=== PATIENT | female | born 1935 | race Caucasian/White ===

== ENCOUNTER 2017-05-26 23:07 | Emergency (ER) | payer MEDICARE, OTHER ==
[~2017-05-26] VITALS: Ht 172.7 cm; Wt 93.0 kg
[~2017-05-26 23:07] MED LIST: ASPI-1053 PO; CARB15DR3 EACHEYE; CARV-50 PO; CITA20TA11 PO; HYDR-569 PO; PANT-47 PO; PROP10DR4 OP; RESTASIS EACHEYE; SIMV20TA5 PO
[2017-05-26] MEDS ORDERED: ipratropium/albuterol 3ml nebule NEB ONE (23:15)
[2017-05-26 23:32] LABS: BASOPHILS % (AUTO) 0.6 % (0-1); EOSINOPHILS # (AUTO) 0.2 X10'3 (0-0.9); EOSINOPHILS % (AUTO) 3.1 % (0-6); HEMATOCRIT 42.7 % (35.0-45.0); HEMOGLOBIN 14.9 g/dl (12.0-16.0); LYMPHOCYTES # (AUTO) 2.1 X10'3 (1.1-4.8); LYMPHOCYTES % (AUTO) 31.7 % (21-51); MEAN CORPUSCULAR HEMOGLOBIN 32.1 PG (27.0-31.0); MEAN CORPUSCULAR HGB CONC 34.9 % (33.0-36.5); MEAN CORPUSCULAR VOLUME 92.1 FL (78-98); MEAN PLATELET VOLUME 8.7 FL (7.4-10.4); MONOCYTES # (AUTO) 0.7 X10'3 (0-0.9); MONOCYTES % (AUTO) 10.5 % (2-12); NEUTROPHILS # (AUTO) 3.5 X10'3 (1.8-7.7); NEUTROPHILS % (AUTO) 54.1 % (42-75); PLATELET COUNT 166 X10'3 (140-440); RED BLOOD COUNT 4.63 X10'6 (4.20-5.60); RED CELL DISTRIBUTION WIDTH 12.1 % (11.5-14.5); WHITE BLOOD COUNT 6.6 X10'3 (4.5-11.0)
[2017-05-26 23:53] LABS: ALANINE AMINOTRANSFERASE 27 U/L (12-78); ALBUMIN 3.8 G/DL (3.4-5.0); ALBUMIN/GLOBULIN RATIO 1.2 (1.1-1.5); ALKALINE PHOSPHATASE 75 IU/L (46-116); ANION GAP 11 (8-16); ASPARTATE AMINO TRANSFERASE 21 U/L (10-37); BILIRUBIN,TOTAL 0.5 MG/DL (0.1-1.0); BLOOD UREA NITROGEN 23 MG/DL (7-18); CALCIUM 9.3 MG/DL (8.5-10.1); CHLORIDE 108 MMOL/L (99-107); CREATININE 0.96 MG/DL (0.40-0.90); GLUCOSE 122 MG/DL (70-104); POTASSIUM 4.6 MMOL/L (3.5-5.1); SODIUM 144 MMOL/L (135-145); TOTAL CARBON DIOXIDE 25.2 MMOL/L (24-32); TOTAL PROTEIN 7.1 G/DL (6.4-8.2); eGFR 56 ML/MIN
[2017-05-27] MEDS ORDERED: LORazepam 2 mg/ml vial IV ONE (00:05)
[2017-05-27 00:46] LABS: PARTIAL THROMBOPLASTIN TIME 25 SECONDS (22-32); PROTHROMBIN TIME 10.6 SECONDS (9.0-12.0)
[2017-05-27] MEDS ORDERED: iohexol 350MG/ML 100ml bottle IV ONE (01:09)
[2017-05-27 02:58] VITALS: BP 161/91
== END 2017-05-27 04:01 | disposition home or self-care (01) ==
LOC: ER 23:07
DX: R06.02 Shortness of breath (principal); R22.1 Localized swelling, mass and lump, neck; I10 Essential (primary) hypertension; K21.9 Gastro-esophageal reflux disease without esophagitis; E78.00 Pure hypercholesterolemia, unspecified; Z90.49 Acquired absence of other specified parts of digestive tract; Z79.82 Long term (current) use of aspirin; Z79.899 Other long term (current) drug therapy; Z60.2 Problems related to living alone
CPT/HCPCS: 36415; 70490; 71045; 71275; 80053; 83880; 84484; 85025; 85379; 85610; 85730; 93005; 94640; 94760; 96374; 99285; J2060; Q9967

== ENCOUNTER 2017-11-29 12:07 | Day surgery (SDC) | payer MEDICARE ==
[~2017-11-29] VITALS: Ht 172.7 cm; Wt 90.9 kg
[2017-11-29] VITALS (11 sets, daily range): BP systolic 75–155; BP diastolic 41–87
[~2017-11-29 12:07] MED LIST changes: +CITA-278 PO; -CITA20TA11 PO; +HYDR-4383 PO; -HYDR-569 PO
[2017-11-29] MEDS ORDERED: MIDAZolam 5mg/5ml vial ONE (12:15)
[2017-11-29] MEDS ORDERED: fentaNYL/PF 50MCG/1 ML 2ML syringe ONE (12:15)
[2017-11-29] MEDS ORDERED: LIDOcaine Viscous 15ml cup ONE (12:15)
== END 2017-11-29 14:15 | disposition home or self-care (01) ==
LOC: GI LAB 12:07
PROVIDERS: ATTEND Internal Medicine Gastroenterology
DX: K44.9 Diaphragmatic hernia without obstruction or gangrene (principal); K21.9 Gastro-esophageal reflux disease without esophagitis; I10 Essential (primary) hypertension; Z90.89 Acquired absence of other organs; Z98.41 Cataract extraction status, right eye; Z98.42 Cataract extraction status, left eye; Z86.69 Personal history of other diseases of the nervous system and sense organs; Z90.711 Acquired absence of uterus with remaining cervical stump; Z85.43 Personal history of malignant neoplasm of ovary; Z87.39 Personal history of other diseases of the musculoskeletal system and connective tissue; Z98.890 Other specified postprocedural states; Z79.899 Other long term (current) drug therapy
CPT/HCPCS: 43235; J2250; J3010; J7030; 99152; A4620

== ENCOUNTER 2019-09-16 14:13 | Emergency (ER) | payer MEDICARE ==
[~2019-09-16] VITALS: Ht 170.2 cm; Wt 90.0 kg
[~2019-09-16 14:13] MED LIST changes: -ASPI-1053 PO; -CITA-278 PO; +CITA20TA28 PO; -HYDR-4383 PO; +SIMV-42 PO; -SIMV20TA5 PO
[2019-09-16 14:24] VITALS: BP 144/74
== END 2019-09-16 15:21 | disposition home or self-care (01) ==
LOC: ER 14:14
DX: S52.501A Unspecified fracture of the lower end of right radius, initial encounter for closed fracture (principal); I48.91 Unspecified atrial fibrillation; E78.00 Pure hypercholesterolemia, unspecified; I10 Essential (primary) hypertension; K21.9 Gastro-esophageal reflux disease without esophagitis; G89.29 Other chronic pain; Z90.49 Acquired absence of other specified parts of digestive tract; Z90.89 Acquired absence of other organs; Z98.890 Other specified postprocedural states; Z79.899 Other long term (current) drug therapy; W19.XXXA Unspecified fall, initial encounter; Y93.89 Activity, other specified; Y92.007 Garden or yard of unspecified non-institutional (private) residence as the place of occurrence of the external cause; Y99.8 Other external cause status
CPT/HCPCS: 29125; 73110; 73130; 99284